=== PATIENT | male | born 1965 | race Caucasian/White ===

== ENCOUNTER 2021-06-08 06:29 | Inpatient (IN) | payer BC ==
[~2021-06-08] VITALS: Ht 193 cm; Wt 100.2 kg
--- NOTE | 2021-06-08 06:52 | NUR ---
BIBS C/O LEFT SIDED NON RADIATING CHEST PAIN SINCE 6AM. -N/V. PATIENT ALERT AND ORIENTED X3 AMBULATORY WITH NON LABORED BREATHING. PLACED IN BED 02 ON MONITOR AND POX.
--- NOTE | 2021-06-08 06:54 | NUR ---
blood obtained and sent to lab
[2021-06-08 07:04] LABS: BASOPHILS % (AUTO) 0.7 % (0.0-2.0); EOSINOPHILS % (AUTO) 5.2 % (0.0-6.0); HEMATOCRIT 43 % (39-51); HEMOGLOBIN 14.2 g/dL (13.5-17.5); LYMPHOCYTES # (AUTO) 2.1 K/uL (0.8-4.8); LYMPHOCYTES % (AUTO) 32.5 % (20.0-44.0); MEAN CORPUSCULAR HGB CONC 33 g/dl (31.0-36.0); MEAN CORPUSCULAR VOLUME 84 fL (80-96); MONOCYTES # (AUTO) 0.4 K/uL (0.1-1.30); MONOCYTES % (AUTO) 5.5 % (2.0-12.0); NEUTROPHILS # (AUTO) 3.6 K/uL (1.8-8.9); NEUTROPHILS % (AUTO) 56.1 % (43.0-81.0); PLATELET COUNT (AUTO) 248 K/uL (150-450); RED BLOOD CELL COUNT(AUTO) 5.17 MIL/uL (4.5-6.0); WHITE BLOOD COUNT (AUTO) 6.4 K/uL (4.3-11.0)
--- NOTE | 2021-06-08 07:09 | NUR ---
xray at bedside
--- NOTE | 2021-06-08 07:47 | NUR ---
MD MADE AWARE OF PATIENT'S BP, STATED "IT'S OK"
[2021-06-08] MEDS ORDERED: ONDANSETRON HCL/PF 4 MG/2 ML VIAL ONE (07:49)
[2021-06-08] MEDS ORDERED: MORPHINE SULFATE INJ 4 MG/ML DISP.SYRIN ONE (07:49)
--- NOTE | 2021-06-08 07:55 | NUR ---
PT TAKEN TO CT
[2021-06-08] MEDS ORDERED: IOHEXOL-350 100 ML VIAL IV ONE (07:57)
[2021-06-08] MEDS ORDERED: MORPHINE SULFATE INJ 2 MG/ML DISP.SYRIN IV ONE (08:00)
[2021-06-08] MEDS ORDERED: ONDANSETRON HCL/PF 4 MG/2 ML VIAL IV ONE (08:00)
[2021-06-08 08:29] LABS: CALCIUM, SERUM 9.1 mg/dL (8.5-10.1); CARBON DIOXIDE 26 mmol/L (21-32); CHLORIDE 103 mmol/L (98-107); CREATININE 1.5 mg/dL (0.6-1.3); GLUCOSE 148 mg/dL (74-106); SODIUM SERUM 138 mmol/L (136-145); UREA NITROGEN, BLOOD 20 mg/dL (7-18)
--- NOTE | 2021-06-08 08:36 | NUR ---
MADE AWARE OF PATIENT'S BP, STATED "IT'S OK"
[2021-06-08] MEDS ORDERED: IV NS 0.9% 1,000 ML IV ONE (09:00)
--- NOTE | 2021-06-08 09:32 | NUR ---
PER MAIN LAB, TROPONIN RESULT WILL TAKE TIME DUE TO MACHINES DOWN. WAS NOT ABLE TO GIVE SPECIFIC TIME FOR RESULTS. MD MADE AWARE. PATIENT MADE AWARE
--- NOTE | 2021-06-08 10:45 | NUR ---
FOLLOWED UP WITH MAIN LAB. MACHINE STILL BROKEN. WILL SEND TROPONIN LAB TEST TO [facility]. AWARE
--- NOTE | 2021-06-08 10:49 | NUR ---
INSOLE PRESSER AT BEDSIDE FOR 2ND TROP
--- NOTE | 2021-06-08 11:50 | NUR ---
[facility] CALLED FERTILIZER LOADER PAGED.
--- NOTE | 2021-06-08 11:50 | NUR ---
MOVE SHEET SUBMITTED AND CALLED FOR TELE BED.
--- NOTE | 2021-06-08 11:51 | NUR ---
COVID 19 ANTIGEN SWAB DONE AND SENT TO LAB
[2021-06-08] MEDS ORDERED: ASPIRIN 81 MG TAB.CHEW PO ONE (12:00)
[2021-06-08] MEDS ORDERED: ASPIRIN 325 MG TABLET ONE (12:03)
[2021-06-08] MEDS ORDERED: ASPIRIN 81 MG TAB.CHEW ONE (12:04)
[2021-06-08] MEDS ORDERED: ENOXAPARIN SODIUM 60 MG/0.6 ML DISP.SYRIN SQ ONE ×2 (12:30→13:10)
--- NOTE | 2021-06-08 12:50 | NUR ---
URINE SAMPLE COLLECTED AND SENT TO LAB
[2021-06-08] MEDS ORDERED: ENOXAPARIN SODIUM 100 MG/ML DISP.SYRIN SQ ONE ×3 (13:18→23:30)
--- NOTE | 2021-06-08 15:40 | NUR ---
GOT BED 315-1 MEHUL ERVIN.
--- NOTE | 2021-06-08 16:03 | NUR ---
REPORT GIVEN TO AZIZA CARVER OF TELE UNIT
--- NOTE | 2021-06-08 16:18 | NUR ---
TRANSFERRED TO BED IN STABLE CONDITION
--- NOTE | 2021-06-08 16:20 | NUR ---
HIGHWAY MAINTENANCE CREW WORKER NOTES RECEIVED PATIENT IN STABLE CONDITION. TRANSFERRED VIA GURNEY ACCOMPANIED BY A NURSE, 1 TECH AND 2 FAMILY MEMBERS. PATIENT IS A/O X4, ABLE TO MAKE NEEDS KNOW. PATIENT ON RA WITH EVEN CHEST EXPANSION, NO S/SX OF RESPIRATORY DISTRESS NOTED. PATIENT PLACED ON A EXTERNAL OUTPATIENT CASE MANAGER READING SR 63. L AC G#20 INTACT AND PATENT. ALL BELONGINGS ACCOUNTED FOR & PATIENT'S MEDS WERE SENT DOWN TO PHARMACY. PATIENT ORIENTED TO NEW ROOM. WENT OVER PLAN OF CARE AND PATIENT WAS ABLE TO VERBALIZE UNDERSTANDING. SAFETY PRECAUTIONS IN PLACE: BED IN LOWEST POSITION, BED LOCKED, SIDE RAILS UP X2, CALL LIGHT WITHIN REACH. WILL CONTINUE TO MONITOR PATIENT PATIENT AND ENDORSE ACCORDINGLY.
[2021-06-08] MEDS ORDERED: ZOLPIDEM TARTRATE 5 MG TABLET PO PRN (18:00)
[2021-06-08] MEDS ORDERED: MORPHINE SULFATE INJ 2 MG/ML DISP.SYRIN IV PRN (18:00)
[2021-06-08] MEDS ORDERED: Z GUARD REMEDY 4 OZ OINT TP PRN (18:00)
[2021-06-08] MEDS ORDERED: ACETAMINOPHEN 325 MG TABLET PO PRN (18:00)
[2021-06-08] MEDS ORDERED: MAG HYDROX/AL HYDROX/SIMETH 30 ML UDC PO PRN (18:00)
[2021-06-08] MEDS ORDERED: ONDANSETRON HCL/PF 4 MG/2 ML VIAL IVP PRN (18:00)
[2021-06-08] MEDS ORDERED: MAGNESIUM HYDROXIDE 30 ML UDC PO PRN (18:00)
[2021-06-08] MEDS ORDERED: hydrALAZINE HCL 50 MG TABLET PO SCH (19:30)
--- NOTE | 2021-06-08 19:31 | NUR ---
PACKAGE DELIVERY ROOM SERVICE RUNNER OPENING NOTES RECEIVED PATIENT IN BED AWAKE WITH FAMILY AT BEDSIDE. A/O X4, ABLE TO MAKE NEEDS KNOWN. PT STABLE ON ROOM AIR, O2 SAT 99% ON ROOM AIR. NO SOB OR S/S OF RESPIRATORY DISTRESS. ON EXTERNAL LIME PLANT OPERATOR READING SR 63. IV ACCESS L AC 20 GAUGE, INTACT AND PATENT. SAFETY PRECAUTIONS IN PLACE. BED IN LOWEST LOCKED POSITION, HOB ELEVATED, SIDE RAILS UP X2, AND CALL LIGHT AND TABLE WITHIN REACH. WILL CONTINUE WITH PLAN OF CARE.
[2021-06-08 20:00] VITALS: BP 160/93
--- NOTE | 2021-06-08 20:00 | NUR ---
RN NOTE ORTHOSTATICS: LAYING: BP 160/93, HR 57, R 20, TEMP 98.8, O2 SAT 97% ON ROOM AIR. SITTING: BP 161/109, HR 70, R 20, TEMP 98.8, O2 SAT 97%. STANDING: BP 161/115, HR 93, R 20, TEMP 98.8, O2 SAT 97%.
[2021-06-08] MEDS: ATORVASTATIN 10 MG TABLET PO SCH (20:07)
--- NOTE | 2021-06-08 20:41 | NUR ---
RN NOTE PT COMPLAINED OF HEADACHE 06/27. ADMINISTERED TYLENOL 650 MG ORDERED. WILL CONTINUE WITH PLAN OF CARE.
[2021-06-08] MEDS ORDERED: NITROGLYCERIN PACKET 1 GM PACKET ONE (21:44)
[2021-06-08] MEDS: NITROGLYCERIN 30 GM TUBE TP SCH (21:52)
[2021-06-08] MEDS ORDERED: HEPARIN INFUSION/D5W 500 ML IV PRN (22:30)
--- NOTE | 2021-06-08 22:37 | NUR ---
RN NOTE PT TROPONIN CAME BACK 7.248. PT ALSO HAD 9 SECONDS OF V TACH. CHARGE NURSE VASILE AND CAR BODY INSPECTOR NICHELLE INFORMED. NEW ORDERS NOTED AND CARRIED OUT.
--- NOTE | 2021-06-08 23:18 | NUR ---
RN NOTE LABS CAME BACK WNL. CHARGE NURSE VASILE AND ROADABILITY MACHINE OPERATOR NICHELLE INFORMED. NEW ORDERS NOTED AND CARRIED OUT.
[2021-06-09] VITALS (7 sets, daily range): BP systolic 100–157; BP diastolic 62–95
[2021-06-09] MEDS: HYDROCODONE/APAP 5/325MG TABLET PO PRN ×2 (01:28→06:17)
--- NOTE | 2021-06-09 01:28 | NUR ---
RN NOTE PT COMPLAINED OF HEADACHE 07/28. ADMINISTERED NORCO 5-325 FOR MODERATE PAIN. WILL CONTINUE TO MONITOR.
[2021-06-09 06:40] LABS: BASOPHILS % (AUTO) 0.5 % (0.0-2.0); EOSINOPHILS % (AUTO) 3.1 % (0.0-6.0); HEMATOCRIT 45 % (39-51); HEMOGLOBIN 14.6 g/dL (13.5-17.5); LYMPHOCYTES # (AUTO) 1.6 K/uL (0.8-4.8); LYMPHOCYTES % (AUTO) 24.6 % (20.0-44.0); MEAN CORPUSCULAR HGB CONC 33 g/dl (31.0-36.0); MEAN CORPUSCULAR VOLUME 84 fL (80-96); MONOCYTES # (AUTO) 0.4 K/uL (0.1-1.30); NEUTROPHILS # (AUTO) 4.2 K/uL (1.8-8.9); NEUTROPHILS % (AUTO) 65.8 % (43.0-81.0); PLATELET COUNT (AUTO) 217 K/uL (150-450); RED BLOOD CELL COUNT(AUTO) 5.36 MIL/uL (4.5-6.0); WHITE BLOOD COUNT (AUTO) 6.3 K/uL (4.3-11.0)
--- NOTE | 2021-06-09 06:45 | NUR ---
FILLING HAULER WEAVING CLOSING NOTES PATIENT IN BED AWAKE. A/O X4, ABLE TO MAKE NEEDS KNOWN. PT STABLE ON ROOM AIR, O2 SAT 97% ON ROOM AIR. NO SOB OR S/S OF RESPIRATORY DISTRESS. ON EXTERNAL JUKEBOX ROUTE DRIVER READING SB 55. IV ACCESS L AC 20 GAUGE, INTACT AND PATENT. ALL NEEDS MET AT THIS TIME. SAFETY PRECAUTIONS IN PLACE AT ALL TIMES. BED IN LOWEST LOCKED POSITION, HOB ELEVATED, SIDE RAILS UP X2, AND CALL LIGHT AND TABLE WITHIN REACH. WILL ENDORSE TO ONCOMING NURSE FOR FRANCIS.
--- NOTE | 2021-06-09 07:15 | NUR ---
PRINCIPAL SOFTWARE ENGINEER OPENING NOTES PATIENT IN BED AWAKE. A/O X4, ABLE TO MAKE NEEDS KNOWN. PT STABLE ON ROOM AIR, O2 SAT 98% ON ROOM AIR. NO SOB OR S/S OF RESPIRATORY DISTRESS. ON EXTERNAL CUSTOMER ASSISTANCE ASSOCIATE READING SB 50'S. IV ACCESS L AC 20 GAUGE, INTACT AND PATENT. ALL NEEDS MET AT THIS TIME. SAFETY PRECAUTIONS IN PLACE AT ALL TIMES. BED IN LOWEST LOCKED POSITION, HOB ELEVATED, SIDE RAILS UP X2, AND CALL LIGHT AND TABLE WITHIN REACH. WILL CONTINUE TO MONITOR PATIENT.
[2021-06-09 07:31] LABS: CALCIUM, SERUM 8.7 mg/dL (8.5-10.1); CREATININE 1.4 mg/dL (0.6-1.3); MAGNESIUM 2.3 mg/dL (1.8-2.4); PHOSPHORUS 3.5 mg/dL (2.5-4.9); POTASSIUM 4.2 mmol/L (3.5-5.1)
[2021-06-09] MEDS: PANTOPRAZOLE 40 MG TABLET.DR PO SCH (08:20)
[2021-06-09] MEDS: NITROGLYCERIN 30 GM TUBE TP SCH ×2 (09:17→21:41)
[2021-06-09] MEDS: hydrALAZINE HCL 50 MG TABLET PO SCH ×3 (09:30→17:00)
[2021-06-09] MEDS: ASPIRIN 81 MG TAB.CHEW PO SCH (09:31)
[2021-06-09 10:14] LABS: THYROID STIMULATING HORMONE 0.431 uIU/mL (0.358-3.74)
[2021-06-09] MEDS ORDERED: HYDR12.55 PO (10:45)
[2021-06-09] MEDS ORDERED: CLONIDINE HCL 0.1 MG TABLET PO PRN (11:00)
[2021-06-09] MEDS ORDERED: IV NS 0.9% 250 ML IV ONE ×2 (11:14→12:24)
[2021-06-09] MEDS ORDERED: IOHEXOL-350 100 ML VIAL IV ONE ×2 (11:14→12:24)
[2021-06-09] MEDS ORDERED: METOPROLOL TARTRATE INJ 5 MG/5 ML AMPUL ONE (12:01)
[2021-06-09] MEDS ORDERED: NITROGLYCERIN 0.4 MG/TAB BOTTLE ONE (12:01)
[2021-06-09] MEDS: METOPROLOL TARTRATE INJ 5 MG/5 ML AMPUL IVP PRN ×2 (12:16→12:26)
[2021-06-09] MEDS ORDERED: DEXTROSE 50%-WATER 50 ML DISP.SYRIN IV PRN (12:30)
[2021-06-09] MEDS ORDERED: INSULIN REGULAR, HUMAN 100 UNIT/ML 3 ML VIAL SQ PRN (12:30)
[2021-06-09] MEDS ORDERED: *INSULIN REGULAR(HUMULIN R)HUM 100 UNIT/ML VIAL SQ PRN (12:30)
--- NOTE | 2021-06-09 13:00 | NUR ---
MIXING PLACE SUPERVISOR NOTE PATIENT CTCA DONE ORDERED. IN STABLE CONDITION. WILL CONTINUE TO MONITOR PATIENT.
[2021-06-09] MEDS: ENOXAPARIN SODIUM 100 MG/ML DISP.SYRIN SQ SCH ×2 (13:11→21:43)
[2021-06-09] MEDS: BLOOD SUGAR DIAGNOSTIC 1 EACH STRIP VI SCH ×2 (17:36→22:00)
--- NOTE | 2021-06-09 19:10 | NUR ---
OYSTER GROWER CLOSING NOTES PATIENT IN BED AWAKE. A/O X4, ABLE TO MAKE NEEDS KNOWN. PT STABLE ON ROOM AIR, O2 SAT 98% ON ROOM AIR. NO SOB OR S/S OF RESPIRATORY DISTRESS. ON EXTERNAL PROPELLER MECHANIC READING SB 50'S. IV ACCESS L AC 20 GAUGE, INTACT AND PATENT. ALL NEEDS MET AT THIS TIME. SAFETY PRECAUTIONS IN PLACE AT ALL TIMES. BED IN LOWEST LOCKED POSITION, HOB ELEVATED, SIDE RAILS UP X2, AND CALL LIGHT AND TABLE WITHIN REACH. WILL ENDORSE PATIENT FOR CONTINUITY OF CARE.
--- NOTE | 2021-06-09 19:41 | NUR ---
MATERIAL PROCESSOR OPENING NOTES: RECEIVED PATIENT AWAKE IN BED, BED IN LOWE POSITION, CALL LIGHTS WITHIN REACH, NO COMPLAIN OF PAIN AND DISCOMFORT AT THIS TIME, PATIENT WAS ACCOMPANIED BY VISITOR DURING ROUNDS, REMIND TO USES CALL LIGHTS WHEN NEEDED ASSISTANCE, ON TELE MONITORING SR-76, ON ROOM AIR SATURATING WELL, PATIENT KEPT CLEAN AND DRY ALL NEEDS MET WILL CONTINUE TO MONITOR.
[2021-06-09] MEDS: ATORVASTATIN 10 MG TABLET PO SCH (21:43)
--- NOTE | 2021-06-09 22:25 | NUR ---
RN NOTES: BLOOD SUGAR -121- NO INSULIN GIVEN PER SLIDING SCALE
[2021-06-10] MEDS: HYDROCODONE/APAP 5/325MG TABLET PO PRN (03:56)
[2021-06-10 03:59] VITALS: BP 134/88
[2021-06-10 07:28] LABS: BASOPHILS % (AUTO) 0.6 % (0.0-2.0); EOSINOPHILS % (AUTO) 3.5 % (0.0-6.0); HEMATOCRIT 45 % (39-51); HEMOGLOBIN 14.7 g/dL (13.5-17.5); LYMPHOCYTES # (AUTO) 1.6 K/uL (0.8-4.8); LYMPHOCYTES % (AUTO) 24.4 % (20.0-44.0); MEAN CORPUSCULAR HGB CONC 33 g/dl (31.0-36.0); MEAN CORPUSCULAR VOLUME 84 fL (80-96); MONOCYTES # (AUTO) 0.4 K/uL (0.1-1.30); MONOCYTES % (AUTO) 5.8 % (2.0-12.0); NEUTROPHILS # (AUTO) 4.3 K/uL (1.8-8.9); NEUTROPHILS % (AUTO) 65.7 % (43.0-81.0); PLATELET COUNT (AUTO) 228 K/uL (150-450); RED BLOOD CELL COUNT(AUTO) 5.36 MIL/uL (4.5-6.0); WHITE BLOOD COUNT (AUTO) 6.6 K/uL (4.3-11.0)
--- NOTE | 2021-06-10 07:29 | NUR ---
RN OPENING NOTE- PT AWAKE IN BED, BED IN LOW POSITION, CALL LIGHT WITHIN REACH, NO COMPLAINT OF PAIN OR DISCOMFORT AT THIS TIME, ON TELE MONITORING SR-78, ON ROOM AIR SATURATING WELL, PATIENT KEPT CLEAN AND DRY ALL NEEDS MET WILL CONTINUE TO MONITOR.
[2021-06-10] MEDS: BLOOD SUGAR DIAGNOSTIC 1 EACH STRIP VI SCH (07:50)
--- NOTE | 2021-06-10 07:51 | NUR ---
MINE CAR DISPATCHER CLOSING NOTES: PATIENT WAS AWAKE IN BED BED IN LOW POSITION, CALL LIGHTS WITHIN REACH, NO COMPLAIN OF PAIN AND DISCOMFORT AT THIS TIME, PATIENT IS A/O X4 AMBULATORY ABLEW TO MAKE NEEDS KNOWN, ON ROOM AIR NO SOB WAS OBSERVED, PATIENT ON TELE MONITORING ON NSR, PATIENT KEPT CLEAN AND DRY ALL NEEDS MET ENDORSE TO INCOMING SHIFT.
[2021-06-10 08:12] VITALS: BP 117/71
[2021-06-10] MEDS: PANTOPRAZOLE 40 MG TABLET.DR PO SCH (08:18)
[2021-06-10] MEDS: ASPIRIN 81 MG TAB.CHEW PO SCH (08:19)
[2021-06-10] MEDS: hydrALAZINE HCL 50 MG TABLET PO SCH (08:19)
[2021-06-10] MEDS: ENOXAPARIN SODIUM 100 MG/ML DISP.SYRIN SQ SCH (08:22)
[2021-06-10] MEDS: NITROGLYCERIN 30 GM TUBE TP SCH (08:32)
[2021-06-10 08:39] LABS: CALCIUM, SERUM 9.1 mg/dL (8.5-10.1); CREATININE 1.5 mg/dL (0.6-1.3); MAGNESIUM 2.7 mg/dL (1.8-2.4); PHOSPHORUS 3.8 mg/dL (2.5-4.9); POTASSIUM 4.1 mmol/L (3.5-5.1)
[2021-06-10] MEDS ORDERED: HYDR-4077 PO (12:08)
[2021-06-10] MEDS ORDERED: ISOS20TA8 PO (12:08)
[2021-06-10 12:16] VITALS: BP 119/73
--- NOTE | 2021-06-10 13:10 | NUR ---
SERVICE DEPARTMENT MANAGER NOTE- PT DC HOME INTO CARE OF . PT VS STABLE, AOX4, CALM INTERACTIVE DENIES PAIN . PT AFTERCARE AND DC PLANNING REVIEWED AND UNDERSTOOD. PIV HEPLOCK DC'D, ID [id number] REMOVED AND PT ESCORTED OFF UNIT BY THIS RN
[2021-06-10] MEDS ORDERED: ISOSORBIDE DINITRATE (20MG) 20 MG TABLET PO SCH (17:00)
== END 2021-06-10 13:10 | disposition home or self-care (01) | DRG 280 ==
LOC: ER 06:46 → TELE 15:46
PROVIDERS: ADMIT Student in an Organized Health Care Education/Training Program; ATTEND Student in an Organized Health Care Education/Training Program
DX: I21.4 Non-ST elevation (NSTEMI) myocardial infarction (principal); N17.0 Acute kidney failure with tubular necrosis; J98.11 Atelectasis; K57.90 Diverticulosis of intestine, part unspecified, without perforation or abscess without bleeding; K42.9 Umbilical hernia without obstruction or gangrene; I10 Essential (primary) hypertension; Z20.822 Contact with and (suspected) exposure to COVID-19; K44.9 Diaphragmatic hernia without obstruction or gangrene; R73.03 Prediabetes; N13.9 Obstructive and reflux uropathy, unspecified; E78.5 Hyperlipidemia, unspecified; G89.29 Other chronic pain; Z91.19 Patient's noncompliance with other medical treatment and regimen
CPT/HCPCS: 36415; 71045-TC; 75574; 80048-TC; 80061-TC; 82962-TC; 83735-TC; 84100-TC; 84443-TC; 84484-TC; 85025-TC; 85378-TC; 85610-TC; 85730-TC; 87081-TC; 93307-TC; C9803; G0378; J1650; J1815; J2270; J2405; J3490; J7030; J7050; Q9967